=== PATIENT | male | born 1955 | race Caucasian/White ===

== ENCOUNTER 2017-11-18 10:46 | Emergency (ER) | payer OTHER ==
[~2017-11-18] VITALS: Ht 180.3 cm; Wt 102.4 kg
[2017-11-18 10:55] VITALS: TEMP 36.4; Ht 180.3 cm; Wt 102.4 kg
[2017-11-18] MEDS ORDERED: PRED20TA PO (11:05)
[2017-11-18] MEDS ORDERED: MULT-506 PO (11:05)
[2017-11-18] MEDS ORDERED: ASPI81TA28 PO (11:05)
[2017-11-18] MEDS ORDERED: METO25TA4 PO (11:05)
[2017-11-18] MEDS ORDERED: GLUC10007 PO (11:05)
[2017-11-18] MEDS ORDERED: LEVO25TA PO (11:05)
[2017-11-18] MEDS ORDERED: KRIL1000 PO (11:05)
[2017-11-18] MEDS ORDERED: ATOR10TA82 PO (11:05)
[2017-11-18] MEDS ORDERED: VALA1TAB2 PO (11:44)
[2017-11-18] MEDS ORDERED: DEXAMETHASONE INJ 6 MG in SYRINGE 0 ML IV STA (12:02)
[2017-11-18] MEDS ORDERED: ONDANSETRON INJ 2 MG/ML 2 ML VIAL IV STA (12:02)
[2017-11-18] MEDS ORDERED: KETOROLAC TROMETHAMINE 30 MG/ML VIAL IV STA (12:02)
[2017-11-18] MEDS ORDERED: MoRPHine SULFATE 10 MG/ML CARP/VIAL IV STA (12:02)
[2017-11-18] MEDS ORDERED: DEXAMETHASONE SOD INJ 4 MG/ML VIAL ONE (12:23)
[2017-11-18] MEDS ORDERED: HYDROmorphone INJ 0.5 MG/0.5 ML SYR IV STA (13:22)
[2017-11-18] MEDS ORDERED: OXYC-90 PO (13:23)
[2017-11-18 13:35] VITALS: BP 169/99; PULSE 79; O2SAT 98
--- NOTE | 2017-11-18 13:46 | EMERGENCY ROOM VISIT NOTE ---
History First contact with patient: 11:26 Chief Complaint: BACK PAIN Stated Complaint: SEVERE LOWER BACK PAIN History of Present Illness The patient is a 62 year old male who presents to the Emergency Room with complaints of severe lower back pain radiating down the left lower extremity to the calf. The patient reports that most of his pain is over the lateral thigh region. The pain is worse when sitting. He denies any history of chronic back pain. The patient reports that he started to develop pain on Friday, shortly after picking beans from his garden the night before. The patient has taken both Aleve and ibuprofen without significant relief. He did see his physician senior administrative assistant yesterday, and was provided a prescription for prednisone. He was offered a prescription for a muscle relaxer, but deferred that treatment. Patient denies any pain extending into the abdomen, upper back or chest. He denies any bladder/bowel incontinence, saddle anesthesias or profound left lower extremity weakness/foot drop. The patient currently rates his discomfort a 10 out of 10. Review of Systems 10 system review was performed and was negative except for pertinent positives and negatives as indicated in history of present illness Past Medical/Surgical History Medical Problems: (1) Hypercholesterolemia (2) Hypertension (3) Hypothyroidism Surgical Problems: (1) No history of previous surgery Family History Unremarkable Social History Smoking Status: Never Smoker Alcohol Use: occasionally Marital Status: Housing Status: lives with family Occupation Status: employed Current/Historical Medications Scheduled Aspirin (Aspirin Ec), 81 MG PO DAILY Atorvastatin (Lipitor), Unknown Dose PO DAILY Glucosamine Sulfate (Glucosamine), 1,000 MG PO DAILY Krill Oil (Krill Oil), 1 CAP PO DAILY Levothyroxine Sodium (Synthroid), Unknown Dose PO DAILY Metoprolol Succinate (Toprol Xl), Unknown Dose PO DAILY Multivitamin (Multivitamin), 1 TAB PO DAILY Prednisone (Prednisone), 20 MG PO DAILY Scheduled PRN Oxycodone Ir (Roxicodone Ir), 1 TAB PO Q4H PRN for Pain Physical Exam Vital Signs Date Time Temp Pulse Resp B/P (MAP) Pulse Ox O2 Delivery O2 Flow Rate FiO2 11/18/17 13:35 79 20 169/99 98 11/18/17 12:45 82 20 161/94 99 Room Air 11/18/17 10:55 36.4 75 18 177/99 98 Room Air Physical Exam CONSTITUTIONAL: Healthy and well nourished. Alert and oriented X 3 with positive affect. Patient appears in moderately severe discomfort, standing at bedside. HEENT: Normocephalic, atraumatic. Pupils equal, round and reactive. No scleral icterus or conjunctival injection/pallor. NECK: Full active range of motion without discomfort. RESPIRATORY: Clear to auscultation bilaterally with no wheezing, crackles, rhonchi or stridor. CARDIOVASCULAR: Regular rate and rhythm with no murmurs, rubs or gallops. GASTROINTESTINAL: Bowel sounds present in all quadrants. Soft and nontender to palpation. MUSCULOSKELETAL: Examination shows tenderness to palpation through the left lower lumbar paraspinous muscle, SI joint and sciatic notch. Mildly positive straight leg raise. Ankle plantar/dorsiflexion strength is 5 out of 5 and symmetric bilaterally. Pedal pulses are intact. INTEGUMENTARY: No rash or other significant dermatologic conditions noted. NEUROLOGIC: No focal neurologic deficits noted. Left foot and toes are sensory intact. Deep tendon reflexes are 2+ and symmetric of the lower extremities. Medical Decision & Procedures Medications Administered Medications (Trade) Dose Ordered Sig/Maxwell Route Start Time Stop Time Status Last Admin Dose Admin Morphine Sulfate (MoRPHine SULFATE INJ) 8 mg NOW STAT IV 11/18/17 12:02 11/18/17 12:04 DC 11/18/17 12:14 8 MG Ketorolac Tromethamine (Toradol Inj) 30 mg NOW STAT IV 11/18/17 12:02 11/18/17 12:04 DC 11/18/17 12:15 30 MG Ondansetron HCl (Zofran Inj) 4 mg NOW STAT IV 11/18/17 12:02 11/18/17 12:04 DC 11/18/17 12:15 4 MG Dexamethasone Sodium Phosphate (Decadron Inj) 8 mg STK-MED ONCE .ROUTE 11/18/17 12:23 11/18/17 12:24 DC 11/18/17 12:26 6 MG Hydromorphone HCl (Dilaudid Inj) 0.5 mg NOW STAT IV 11/18/17 13:22 11/18/17 13:23 DC 11/18/17 13:32 0.5 MG ED Course Patient history and physical exam were performed. Nurse's notes were reviewed. Vital signs were reviewed, showing a blood pressure 177/99. The patient does report a history of hypertension. The patient appears in severe discomfort. The patient agreed to parenteral titration of his pain. IV access was established, and the patient was initially administered IV morphine, Toradol and Decadron. After approximately 60 minutes, reassessment showed the pain was only reduced to a 7 out of 10. He was administered an additional Dilaudid 0.5 mg IVP. Patient reported that he felt well enough that he would rather go home. The patient will be provided a prescription for OxyIR 5 mg, dispense #15 with no refills. He was encouraged alternate ibuprofen and Tylenol for baseline pain relief. He was instructed to continue with his prednisone dosing tomorrow afternoon. I did encourage follow-up with his PCP for further management. Return to the emergency department for uncontrollable pain, bladder /bowel incontinence, saddle anesthesias or left lower extremity weakness. The patient was happy with plan of care, voiced understanding of all discharge instructions, and rated his pain a 5 out of 10 at the conclusion of my exam. Medical Decision Patient presents with history and clinical exam findings consistent with an acute left lumbar radiculitis. I do not suspect emergent compressive neuropathy such as cauda equina syndrome. The patient denies any abdominal pain , therefore I do not suspect abdominal referred pain. At this point, I will defer imaging studies to his PCP. He gives no history of trauma to suggest fracture. [place] Drug Monitoring Program Search Results: patient reviewed within database, no issues identified Medication Reconcilliation Current Medication List: was personally reviewed by me Blood Pressure Screening Patient's blood pressure: Elevated blood pressure Blood pressure disposition: Elevated BP felt to be situational Impression Primary Impression: Left lumbar radiculitis Departure Information Dispostion Home / Self-Care Prescriptions Oxycodone Ir (Roxicodone Ir) 5 Mg Tab 1 TAB PO Q4H Y for Pain, #15 TAB For Initial Treatment Prov: David Braga PA 11/18/17 Forms HOME CARE DOCUMENTATION FORM, IMPORTANT VISIT INFORMATION Patient Instructions Lumbar Radiculopathy, My [facility] Additional Instructions Read sciatica handout. Avoid heavy lifting or sitting for long periods of time. Ibuprofen 800 mg and/or Tylenol 1000 mg every 8 hours. You may also alternate these medications for more effective pain relief: Ibuprofen --4 HRS--> Tylenol --4 HRS--> ibuprofen --4 HRS--> Tylenol .... Take your prednisone as prescribed by your PCP -next dose tomorrow afternoon. OxyIR if needed for worse pain. Do not drink alcohol or drive while taking OxyIR. Follow-up with your family doctor if symptoms are not improving within the next week. Return to the emergency department for any developing left leg weakness, inner thighs/pubic numbness or bladder/bowel incontinence.
== END 2017-11-18 13:37 | disposition home or self-care (01) ==
LOC: C.EDB 10:47 → C.EDD 13:37
DX: M54.16 Radiculopathy, lumbar region (principal); E78.00 Pure hypercholesterolemia, unspecified; I10 Essential (primary) hypertension; E03.9 Hypothyroidism, unspecified; Z79.82 Long term (current) use of aspirin; Z79.899 Other long term (current) drug therapy